=== PATIENT | male | born 1940 | race Caucasian/White ===

== ENCOUNTER 2017-09-13 14:45 | Inpatient (IN) | payer MEDICARE ==
[2017-09-13] MEDS ORDERED: ONDANSETRON INJ 4 MG/2 ML VIAL IV ONE (15:29)
[2017-09-13] MEDS ORDERED: SODIUM CHLORIDE 0.9% (FLUSH) 10 ML SYG IV PRN (15:29)
[2017-09-13] MEDS ORDERED: SODIUM CHLORIDE 0.9% 1000ML 1,000 ML IVS PRN (15:29)
--- NOTE | 2017-09-13 15:55 | ED.PDOC ---
History of Present Illness - General Chief Complaint: Diabetic Complaint Stated Complaint: HYPERGLYCEMIA Time Seen by Provider: 09/13/17 15:04 Source: patient, family - History of Present Illness Initial Comments: PT BROUGHT TO THE ED BY HIS SON WHO WAS CALLED BY PCP AND TOLD TO COME TO THE ED DUE TO ABNORMALITIES OF BLOOD WORK DRAWN YESTERDAY AT [facility] OFFICE. PT WAS FOUND TO HAVE ELEVATED BLOOD GLUCOSE AND LOW CO2. PT HAS BEEN PROGRESSIVELY MORE AND MORE WEAK OVER THE PAST WEEK WHEN HE BEGAN HAVING FLU LIKE SYMPTOMS OF COUGH AND VOMITING. PT STATES THAT HE STOPPED TAKING HIS INSULIN FOR A WEEK DUE TO THE WEAKNESS AND VOMITING. SON ALSO STATES THAT PATIENT HAS A LEFT HEEL WOUND AND HAS BEEN INCONTINENT OF URINE. Timing/Duration: 1 week, getting worse Severity: moderate Improving Factors: nothing Worsening Factors: nothing Associated Symptoms: cough, malaise, nausea/vomiting, weakness Allergies/Adverse Reactions: Allergies Penicillins Allergy (Severe, Verified 11/18/15 13:30) Home Medications: Ambulatory Orders Allopurinol [Zyloprim] 300 mg PO DAILY 11/18/15 Glipizide 10 mg PO DAILY 11/18/15 Ibuprofen 800 mg PO Q4HR 11/18/15 Metformin HCl 1,000 mg PO BID 11/18/15 Simvastatin 5 mg PO DAILY 11/18/15 Warfarin Sodium [Coumadin] 4 mg PO DAILY 11/18/15 traMADol 37.5MG/APAP 325MG [Ultracet] 1 ea PO Q6H PRN #12 tab 11/18/15 Review of Systems - Review of Systems Constitutional: States: malaise, weakness. Denies: chills, fever EENTM: States: nose congestion. Denies: throat pain Respiratory: States: cough, short of breath Cardiology: Denies: chest pain, palpitations Gastrointestinal/Abdominal: States: nausea, vomiting. Denies: abdominal pain Genitourinary: States: other - INCONTINENCE. Denies: hematuria Musculoskeletal: Denies: joint pain, joint swelling Skin: States: lesions - TO LEFT HEEL. Denies: rash Neurological: States: weakness. Denies: headache Endocrine: States: no symptoms reported Hematologic/Lymphatic: States: no symptoms reported Past Medical History (General) - Patient Medical History Hx Seizures: No Hx Stroke: No Hx Dementia: No Hx Asthma: Yes Hx of COPD: No Hx Cardiac Disorders: Yes - a fib Hx Congestive Heart Failure: No Hx Pacemaker: No Hx Hypertension: Yes Hx Thyroid Disease: No Hx Diabetes: Yes Hx Gastroesophageal Reflux: No Hx Renal Disease: No Hx Cancer: No Hx of HIV: No Hx Hepatitis C: No Hx MRSA: No - Vaccination History Hx Tetanus, Diphtheria Vaccination: Yes Hx Influenza Vaccination: Yes Hx Pneumococcal Vaccination: Yes - Social History Hx Tobacco Use: No Hx Chewing Tobacco Use: No Hx Alcohol Use: No Hx Substance Use: No Hx Substance Use Treatment: No Hx Depression: No Hx Physical Abuse: No Hx Emotional Abuse: No Hx Suspected Abuse: No - Female History Patient : No Family Medical History - Family History Father Family History: Unknown Physical Exam - Physical Exam General Appearance: Alert, Frail, No apparent distress, Ill Appearing, Well Developed, Well Groomed, Well Hydrated, Well Nourished Ears, Nose, Throat: hearing grossly normal Neck: supple, normal inspection Respiratory: no respiratory distress, no accessory muscle use, crackles - AT BILATERAL BASES Cardiovascular/Chest: no murmur, tachycardia, irregularly irregular Gastrointestinal/Abdominal: non tender, soft Back Exam: normal inspection Extremity: other - LARGE SHALLOW ULCERATION TO LEFT HEEL Neurologic: no motor/sensory deficits, normal mood/affect Skin Exam: warm/dry, pallor Progress - Progress Progress: 09/13/17 17:20 PT RESTING COMFORTABLY ON RE-EVAL. BP IMPROVED AFTER IV FLUID BOLUS. DIAGNOSTICS STUDIES DISCUSSED. PT AGREES WITH PLAN TO ADMIT. - Results/Orders Results/Orders: 09/13/17 15:04 EKG Assessment ONCE 09/13/17 15:15 EKG STAT 09/13/17 15:29 IV Care:Saline Lock per Protoc QSHIFT Sodium Chloride 0.9% (Flush) [Saline Flush Syringe] 10 ml IV PRN PRN Pulse Oximetry Assessment DAILY 09/13/17 15:30 EKG STAT 09/13/17 16:25 Arterial Blood Gas Routine 09/13/17 17:17 URINE CULTURE W/COLONY COUNT Stat 09/13/17 17:27 Sodium Chloride 0.9% 1000ML [Ns 1000 ml] 1,000 ml IVS ONCE 09/13/17 17:40 Catheter:Dunne QSHIFT 09/13/17 18:00 Insulin, Reg.(Human) [HumuLIN R] 250 units Sodium Chl 0.9% 250Ml (Renetta) [NS 250ml (RENETTA)] 247.5 ml IVPB Q12H 09/14/17 09:00 Pulse Ox Daily Laboratory Results - last 24 hr 09/13/17 09/13/17 09/13/17 15:08 15:42 15:42 WBC 16.3 H RBC 3.84 L Hgb 11.3 L Hct 34.8 L MCV 90.6 MCH 29.4 MCHC 32.4 L RDW 13.5 Plt Count 393 MPV 8.1 Absolute Neuts (auto) 13.80 H Absolute Lymphs (auto) 1.10 Absolute Monos (auto) 1.20 H Absolute Eos (auto) 0.00 Absolute Basos (auto) 0.20 H Neutrophils % 84.4 H Lymphocytes % 6.9 L Monocytes % 7.3 Eosinophils % 0.2 L Basophils % 1.2 Sodium 133 L Potassium 3.6 Chloride 100 L Carbon Dioxide 20 L Anion Gap 16.6 BUN 65 H Creatinine 1.30 BUN/Creatinine Ratio 50.0 H POC Glucose 400 H Random Glucose 485 H* Serum Osmolality 305.8 H Calcium 9.0 Total Bilirubin 0.8 AST 19 ALT 9 L Alkaline Phosphatase 89 Serum Total Protein 6.6 Albumin 2.4 L Globulin 4.2 H Albumin/Globulin Ratio 0.6 L Urine Color Urine Appearance Urine pH Ur Specific Dorris Urine Protein Urine Glucose (UA) Urine Ketones Urine Blood Urine Nitrite Urine Bilirubin Urine Urobilinogen Ur Leukocyte Esterase Urine RBC Urine WBC Ur Epithelial Cells Amorphous Sediment Urine Bacteria Serum Ketones Small 09/13/17 17:17 WBC RBC Hgb Hct MCV MCH MCHC RDW Plt Count MPV Absolute Neuts (auto) Absolute Lymphs (auto) Absolute Monos (auto) Absolute Eos (auto) Absolute Basos (auto) Neutrophils % Lymphocytes % Monocytes % Eosinophils % Basophils % Sodium Potassium Chloride Carbon Dioxide Anion Gap BUN Creatinine BUN/Creatinine Ratio POC Glucose Random Glucose Serum Osmolality Calcium Total Bilirubin AST ALT Alkaline Phosphatase Serum Total Protein Albumin Globulin Albumin/Globulin Ratio Urine Color Yellow Urine Appearance Cloudy Urine pH 6.0 Ur Specific Dorris 1.020 Urine Protein 30 Urine Glucose (UA) >=1000 H Urine Ketones 40 H Urine Blood Small H Urine Nitrite Positive H Urine Bilirubin Negative Urine Urobilinogen 2.0 H Ur Leukocyte Esterase Negative Urine RBC 5-10 H Urine WBC 3-5 H Ur Epithelial Cells 0-1 Amorphous Sediment 4+ Urine Bacteria 3+ H Serum Ketones - EKG/XRAY/CT EKG: Atrial, Fibrillation, RVR - @103, NL AXIS, RBBB, no ST T wave changes - NO OLD EKG FOR COMPARISON. XRAY: chest - NO ACUTE DISEASE PER RAD Departure - Departure Clinical Impression: Hyperglycemia, Dehydration, Generalized muscle weakness, Diabetic foot ulcer, Viral syndrome Time of Disposition: 18:00 Disposition: Admit Patient Condition: Fair Departure Forms: ED Discharge - Pt. Copy, Patient Portal Self Enrollment Instructions: DI for Diabetes Type 2 Referrals: ART DIXON [Primary Care Provider] - 1-2 Weeks Home Medications: Ambulatory Orders Allopurinol [Zyloprim] 300 mg PO DAILY 11/18/15 Glipizide 10 mg PO DAILY 11/18/15 Ibuprofen 800 mg PO Q4HR 11/18/15 Metformin HCl 1,000 mg PO BID 11/18/15 Simvastatin 5 mg PO DAILY 11/18/15 Warfarin Sodium [Coumadin] 4 mg PO DAILY 11/18/15 traMADol 37.5MG/APAP 325MG [Ultracet] 1 ea PO Q6H PRN #12 tab 11/18/15 Decision To Admit - Decistion To Admit Decision to Admit Reason: Admit from ER Decision to Admit Date: 09/13/17 - CASE DISCUSSED WITH NOE EDOUARD NP WHO AGREES TO ADMIT PATIENT. Decision to Admit Time: 18:24
[2017-09-13] MEDS ORDERED: SODIUM CHLORIDE 0.9% 1000ML 1,000 ML IVS ONE ×2 (16:14→17:27)
[2017-09-13] MEDS ORDERED: INSULIN, REG.(HUMAN) 250 UNITS in SODIUM CHL 0.9% 250ML (AVIVA) 247.5 ML IVPB SCH ×4 (18:00→23:30)
[2017-09-13] MEDS ORDERED: SODIUM CHL 0.9% 250ML (AVIVA) 250 ML IVPB ONE (19:08)
[2017-09-13] MEDS ORDERED: INSULIN, REG.(HUMAN) 100 U/ML VIAL ONE (19:08)
--- NOTE | 2017-09-13 22:57 | HP ---
SUPERVISING PHYSICIAN: Jarvis Anaya MD CHIEF COMPLAINT: Weakness and altered mental status. HISTORY OF PRESENT ILLNESS: This is a 77-year-old male patient who presented to the Emergency Room yesterday because he was called by his primary care physician in [place], Dr. Razo, to come to the Emergency Room due to some abnormalities in his blood work. He was found to have a very low CO2 and an elevated glucose. Initially, his symptoms started approximately one week ago with extreme weakness and flu like symptoms. He was febrile, but did not take his temperature and had extremely bad chills. He had some nausea and vomiting and it got to the point that his vomiting was so bad that he quit taking all of his medicines including his insulin. He also noted a heel ulcer on his left foot. In addition to the flu like symptoms, he also was incontinent and was falling. There was no acute trauma, but he was very weak. In the Emergency Room, his lab showed a white count 16,300 with hemoglobin 11.3 and hematocrit 34.8. Blood sugar was 485. Sodium 133, potassium 3.6, chloride 100, carbon dioxide 20. BUN 65, creatinine 1.3. Serum osmolality was 305.8. Magnesium 1.9. He was given fluid boluses in the Emergency Room and started on an insulin drip. He also was positive for serum ketones. I was called for admission to the hospital. I saw the patient in the Emergency Room. I ordered a urinalysis and he was positive for urinary tract infection. His urine glucose was greater than 1000, urine ketones 40, urine blood small, nitrates positive, urine RBCs 5 to 10, urine WBCs 3 to 5, urine bacteria 3+. He was tachycardic with O2 saturation 90%. Flu swab by PCR was negative for influenza A and B. He was admitted to the Medical/Surgical Floor in the hospital. PAST MEDICAL HISTORY: Past medical history was somewhat difficult to obtain from the patient as he was having a difficult time with remembering his history due to dehydration and elevated glucose. 1. Diabetes mellitus, type 2, on insulin therapy. 2. Atrial fibrillation. 3. Coronary artery disease. 4. Hypertension. 5. Hyperlipidemia. 6. Gastroesophageal reflux disease. 7. Diabetic neuropathy. 8. Gout. 9. Chronic back pain. PAST SURGICAL HISTORY: 1. Back surgery. OUTPATIENT MEDICATIONS: Pending verification and we will have to get those from his primary care physician in [place]. ALLERGIES: PENICILLIN. SOCIAL HISTORY: He lives in [place]. His primary care physician is Dr. Razo in [place]. He lives alone. He denies any tobacco, ETOH or illicit drug use. REVIEW OF SYSTEMS: GENERAL: Positive for fatigue and fever. Negative for weight changes. HEENT: Positive for sinus symptoms. Negative for ear pain, vision disturbance or sore throat. RESPIRATORY: Positive for dry cough and some mild shortness of breath. Negative to wheezing. CARDIAC: Negative for chest pain, palpitations or tachycardia. GASTROINTESTINAL: Positive for nausea, vomiting. Negative for diarrhea, constipation or abdominal pain. GENITOURINARY: Negative for hematuria, dysuria or polyuria. SKIN: Negative for lesions or rashes. NEUROLOGIC: Positive for weakness. Negative for headache or seizures. PHYSICAL EXAMINATION: VITAL SIGNS: Temperature 97.9. Heart rate 102. Blood pressure 100/61. Respiratory rate 20. O2 saturation 93% on 2 liters nasal cannula. GENERAL: This is a 77-year-old male patient who is lying in his hospital bed. He is in no acute distress. HEENT: Normocephalic, atraumatic. Pupils are equal and reactive. Oropharynx is clear. Oral mucous membranes are dry. NECK: Supple without mass. No discernible jugular venous distention. RESPIRATORY: Essentially clear to auscultation bilaterally. CHEST: There is equal rise and fall of the chest with inspiration and expiration. CARDIOVASCULAR: Regular rate and rhythm. At times, he is slightly tachycardic. ABDOMEN: Soft, nondistended, nontender. Bowel sounds are positive. EXTREMITIES: No cyanosis, clubbing or edema. He does have a dressing to his left heel that is dry and intact. NEUROLOGIC: Awake, alert and oriented times three although he has a difficult time with his short term memory, most likely due to his illness. LABORATORY: In addition to those in the history of present illness, sodium 133 , potassium 3.4, chloride 102, carbon dioxide 20, BUN 66, creatinine 1.26. Glucose 420, serum osmolality 303.6. PT 165.3, INR 15.0, PT-T 66.3. Chest x- ray per radiologic interpretation shows no focal airspace disease, prominence of the left hilum may be seen with lymphadenopathy and prominent pulmonary vasculature or mass. All other labs and films have been reviewed via the EMR. ASSESSMENT: 1. Diabetic ketoacidosis with positive serum ketones and an elevated blood sugar in a known diabetic who has stopped taking his medications approximately one week ago and was exacerbated by his infectious process. 2. Urinary tract infection. 3. Dehydration. 4. Altered mental status. 5. Febrile illness, most likely related to #2. 6. Diabetic left heel abscess. 7. Gastroesophageal reflux disease. 8. Diabetic neuropathy. 9. Gout. 10. Hypertension. 11. History of atrial fibrillation, presently on warfarin therapy with a supratherapeutic INR. 12. Diabetes mellitus, type 2. 13. Coronary artery disease. 14. Hyperlipidemia. PLAN: We will admit the patient to the hospital. We will continue on his insulin drip until serum ketones are negative. We will continue administration of IV fluids, but I will be somewhat careful with that due to his cardiac history. It would be very helpful if we had some records from his primary care physician, Dr. Razo, in [place] as well as clarification on all his home medications. I will make him NPO for now until we get his blood sugars straightened out. He has also been put on Rocephin for the urinary tract infection and I have ordered a wound culture as well as a urine culture. Blood cultures were done in the Emergency Room. I am not sure if we need to followup on the chest x-ray with CT of the chest, but will do that as the patient's condition improves. His INR was supratherapeutic. I have given 2 mg of vitamin K and we will recheck his INR in the morning. I am not sure if he was taking his Coumadin because of his confusion and I am not quite sure why his INR was so high, but we will followup on that also. I have ordered a hemoglobin A1c. Also, diabetic ketoacidosis protocol was initiated on admission. We will continue to monitor the patient closely and follow as needed. #[id number] [facility]
--- NOTE | 2017-09-13 23:00 | RAD ---
Examination: XR CHEST 1 VIEW dated 09/13/2017 8:57 PM SPEECH THERAPY DIRECTOR History: leukocytosis Comparison: Chest radiograph same day Technique: Frontal view of the chest Findings: Exam is hypoventilatory however there is no focal airspace consolidation. Mild linear atelectasis of the right lung base. No pneumothorax or pleural effusion. Prominence of the left hilum. Stable cardiac silhouette. Impression: No focal airspace disease. Prominence of the left hilum may be seen with lymphadenopathy, prominent pulmonary vasculature, or mass. Electronically signed by: Jarvis Mary MD 09/13/2017 10:59 PM SPEECH THERAPY DIRECTOR
[2017-09-13] MEDS ORDERED: ONDANSETRON INJ 4 MG/2 ML VIAL IV PRN (23:15)
[2017-09-13] MEDS ORDERED: KCL 20 MEQ/NS 1,000 ML IVS PRN (23:15)
[2017-09-13] MEDS ORDERED: PANTOPRAZOLE SODIUM IV 40 MG VIAL IV SCH (23:30)
[2017-09-13] MEDS ORDERED: ENOXAPARIN SODIUM 40 MG/0.4 ML SYG SUBCU SCH (23:30)
--- NOTE | 2017-09-13 23:30 | PCM.CORE ---
Physician DVT/VTE - Prophylaxis Currently: Patient already on anticoagulation therapy - 5 or more Very High Risk Treatments: Early Ambulation *, Sequential Compression Device
[2017-09-13] MEDS ORDERED: KCL 20MEQ/D5NS 1,000 ML IVS PRN (23:42)
[2017-09-13] MEDS ORDERED: SODIUM CHL 0.9% 50ML MIN-BAG+ 50 ML IVPB ONE (23:58)
[2017-09-13] MEDS ORDERED: cefTRIAXone SODIUM 1 GM VIAL ONE (23:58)
[2017-09-14] MEDS: IV SET AND CAP CHANGE INJ INJ SCH (00:06)
[2017-09-14] MEDS ORDERED: KCL 20MEQ/D5NS 1,000 ML IVS ONE (00:18)
[2017-09-14] MEDS ORDERED: KCL 20 MEQ/NS 1,000 ML IVS ONE (04:00)
[2017-09-14] MEDS ORDERED: PHYTONADIONE INJ 10 MG/ML AMP IV ONE (04:04)
[2017-09-14] MEDS ORDERED: DEXTROSE 50% 25 GM/50 ML SYG IV PRN (04:55)
[2017-09-14] MEDS ORDERED: GLUCAGON INJ 1 MG VIAL SUBCU PRN (04:55)
[2017-09-14] MEDS: INSULIN LISPRO 100 UNITS/ML PEN SUBCU SCH ×4 (06:12→16:13)
[2017-09-14] MEDS ORDERED: INSULIN LISPRO 100 UNITS/ML PEN SUBCU SCH (07:30)
[2017-09-14] MEDS ORDERED: cefTRIAXone SODIUM 1 GM VIAL ONE ×2 (08:42→11:09)
[2017-09-14] MEDS ORDERED: SODIUM CHL 0.9% 50ML MIN-BAG+ 0 ML IVPB ONE (08:42)
[2017-09-14] MEDS: KCL 20 MEQ/NS 1,000 ML IVS PRN ×2 (09:16→19:20)
[2017-09-14] MEDS ORDERED: INSULIN DETEMIR 100 UNITS/ML PEN SUBCU ONE (10:44)
[2017-09-14] MEDS ORDERED: SODIUM CHLORIDE 0.9% 1000ML 1,000 ML IVS ONE (10:50)
[2017-09-14] MEDS ORDERED: SODIUM CHL 0.9% 50ML MIN-BAG+ 50 ML IVPB ONE (11:08)
[2017-09-14] MEDS: cefTRIAXone SODIUM 1 GM in SODIUM CHL 0.9% 50ML MIN-BAG+ 50 ML IVPB SCH ×3 (11:33)
[2017-09-14] MEDS ORDERED: levoFLOXacin 500MG IV 500 MG in PREMIX BAG 1 BAG IVPB SCH ×2 (12:00→14:00)
[2017-09-14] MEDS ORDERED: VANCOMYCIN HCL INJ 1,000 MG in SODIUM CHLORIDE 0.9% 250ML 250 ML IVPB SCH (12:00)
[2017-09-14] MEDS ORDERED: VANCOMYCIN PER PHARMACY INJ SCH (12:00)
[2017-09-14] MEDS ORDERED: SODIUM CHLORIDE 0.9% 250ML 250 ML ONE ×2 (12:58→21:00)
[2017-09-14] MEDS ORDERED: levoFLOXacin 500MG IV 100 ML IVPB ONE (12:58)
[2017-09-14] MEDS ORDERED: VANCOMYCIN HCL INJ 1,000 MG VIAL IVPB ONE ×2 (12:59→21:00)
[2017-09-14] MEDS ORDERED: PANTOPRAZOLE SODIUM TAB 40 MG PO ONE (12:59)
[2017-09-14] MEDS ORDERED: SODIUM CHL 0.9% 250ML (AVIVA) 250 ML IVPB ONE (14:52)
[2017-09-14] MEDS ORDERED: INSULIN, REG.(HUMAN) 100 U/ML VIAL ONE (14:53)
[2017-09-14] MEDS: INSULIN, REG.(HUMAN) 250 UNITS in SODIUM CHL 0.9% 250ML (AVIVA) 247.5 ML IVPB SCH ×2 (15:02)
[2017-09-14] MEDS: PANTOPRAZOLE SODIUM TAB 40 MG PO SCH (16:28)
--- NOTE | 2017-09-14 16:47 | RAD ---
EXAM DESCRIPTION: Foot,Left 2 Views CLINICAL HISTORY: left heel decubitus ulcer; leukocytosis COMPARISON: None. TECHNIQUE: 2 views right FINDINGS: Digital artery calcification is observed throughout the foot. Mild degenerative changes are observed in the metatarsal phalangeal joint. A large plantar calcaneal spurs observed. Intertarsal degenerative arthritis is observed. Degenerative changes are observed in the tibial talar articulation. No bone erosion or destruction is seen to suggest osteomyelitis. IMPRESSION: Degenerative changes are observed. No plain film evidence of osteomyelitis is detected. Electronically signed by: Ta Lora MD 09/14/2017 4:45 PM [facility]
--- NOTE | 2017-09-14 19:01 | PN ---
DATE: 09/14/17 SUPERVISING PHYSICIAN: Jarvis Anaya M.D. SUBJECTIVE: The patient is resting in bed. He was changed to a p.o. diet this morning and has been to tolerate oral intake. He remains quite dehydrated and notes that his thinking process is still fuzzy. He has been afebrile since admission. He denied any chest pains. No nausea, vomiting or diarrhea. OBJECTIVE: VITAL SIGNS: T max 98.7, pulse 98, blood pressure 122/78, respirations 18, satting 96% on nasal cannula at rest on 2 liters. I's and O's show a positive balance of 1580 with 2580 in, 1,000 out. Weight is 106.5 kg. CHEST: Lungs are clear to auscultation, just diminished towards the bases. HEART: Slightly irregular rate and rhythm with a tachycardic rhythm noted on the monitor. ABDOMEN: Soft, non-tender. Positive bowel sounds. EXTREMITIES: No clubbing, cyanosis or edema. Left heel has a dressing in place that is clean and dry with noted pressure ulcer overlying the heel that is approximately 6 cm in circumference with an area of cellulitis circumferential with no obvious drainage. The center is notable for eschar. NEUROLOGIC: He is alert and oriented times three. LABORATORY: White count continues to show leukocytosis with 15,800 white count with hemoglobin 10.6, hematocrit 32.8, platelet count 387,000. Differential does show a left shift. Coagulation studies today show PT 25.1 with INR 2.24. Chemistries: Last BMP this morning after he was stopped on insulin drip showed sodium 135, potassium 4.1, glucose 262, serum osmolality 299, BUN 70, creatinine 1.24. Liver functions showed to be within normal limits. Blood sugars still remain in the high 200s. He did have a negative ketone at 2:00 this morning, however at 6:00 after insulin was stopped it was showing small again. MICROBIOLOGY: He had 1 set of blood cultures both aerobic and anaerobic positive that showed gram positive cocci. Wound culture is pending. The other set of blood culture shows positive anaerobic bottle again with gram positive cocci. Urine culture preliminary shows gram positive cocci. RADIOLOGY: X-ray of the left heel per radiology interpretation shows degenerative changes observed. No plain film evidence of osteomyelitis was detected per radiology interpretation. ASSESSMENT: 1. Mild diabetic ketoacidosis showing some improvement after initiation of DKA protocol with the patient being transitioned from insulin drip initially to subcue insulin secondary to poor medical compliance in regards to his insulin therapy and exacerbated by underlying infectious process to include both diabetic ulcer, cystitis and bacteremia. 2. Bacteremia with gram positive cocci preliminary on gram stain, likely etiology is from a diabetic ulcer on the left heel. 3. Diabetic ulcer of left heel stage 2 decubitus with cultures pending felt to be the etiology of underlying bacteremia and urinary tract infection. 4. Acute cystitis with preliminary culture showing gram positive cocci likely secondary to the underlying bacteremia. 5. Dehydration secondary to diabetic ketoacidosis. 6. Altered mental status secondary to underlying infectious process with metabolic encephalopathy and exacerbated by dehydration. 7. Febrile illness with leukocytosis secondary to bacteremia. 8. Prerenal azotemia secondary to dehydration due to underlying diabetic ketoacidosis. 9. Gastroesophageal reflux disease. 10. Diabetic neuropathies. 11. Gout. 12. Hypertension. 13. History of atrial fibrillation on chronic Coumadin therapy showing a supratherapeutic INR on admission requiring administration of Vitamin K now showing a therapeutic INR. 14. Diabetes mellitus type 2 poorly controlled. 15. Coronary artery disease. 16. Hyperlipidemia. PLAN: Given that the patient now has positive blood cultures and it is felt that the source of the bacteremia and urinary tract infection is the diabetic ulcer and with gram stains and preliminary cultures showing gram positive cocci , will go ahead and initiate vancomycin per Pharmacy protocol as well as start him on some Levaquin and await final culture results to further target antibiotic therapy. Will reinitiate his insulin drip to further control his blood sugars and continue with IV fluids in efforts to reverse his dehydration and improve his hemodynamics. He is on a diabetic diet but has had very little oral intake and as well has been started on subcue insulin. Anticipate that the insulin drip can be kept at a low basal rate with the goal of keeping his blood sugars between 150 and 200. Will continue to monitor his blood sugars hourly and as he shows to be stable, extend those to every 2 hours and every 4 hours along with BMPs at least for an additional 12 to 24 hours. Will anticipate culture results within the next 24 to 48 hours to further target antibiotic therapy and given the source of infection and bacteremia, anticipate at least 14 day course of treatment and more likely longer depending on again the ultimate culture results. Once those culture results are available, will consult with Infectious Disease, Dr. Hu, to assist in further management of his antibiotic therapy. Again as he shows stabilization of his blood sugars, will titrate off insulin drip and continue with subcue within the next 24 hours. Until further culture results are available and the patient is showing to be more clinically stable, will anticipate at least an additional 24 to 48 hours on Acute Care. Until discharge, with anticipation of discharging on antibiotics or needing to go to Swing Bed, will get a Physical Therapy consultation as well prior to discharge. Until discharge, will continue to monitor the patient closely and treat appropriately. #[id number] [facility]
--- NOTE | 2017-09-14 20:03 | CT ---
Procedure: CT HEAD WITHOUT IV CONTRAST Exam Date: 09/14/2017 7:07 PM OUTBOARD SYSTEM OPERATOR Ordering Provider: Adelfo Flower NP Clinical Indication: elevated INR s/p fall Comparison: None Technique: CT images of the head were obtained without contrast administration. Coronal and sagittal reformats were obtained. This exam was performed according to our departmental dose-optimization program which includes automated exposure control, adjustment of the mA and/or kV according to patient size and/or use of iterative reconstruction technique. Findings: There is no acute cortical infarction, hemorrhage, midline shift, mass effect, or hydrocephalus. The calvaria and skull base are unremarkable. Paranasal sinuses and mastoid air cells are well aerated. Impression: Examination is degraded by motion. No gross intracranial hemorrhage or midline shift. Electronically signed by: Yin Cheatham MD 09/14/2017 8:02 PM OUTBOARD SYSTEM OPERATOR
--- NOTE | 2017-09-14 20:14 | RAD ---
Procedure: XR WRIST 1-2 VIEWS Exam Date: 09/14/2017 7:13 PM [facility] Ordering Provider: Adelfo Flower NP Clinical Indication: right wrist pain s/p fall Comparison: None Findings: There is no definite evidence for acute fracture or focal osseous destruction. There is evidence of severe widening of the scapholunate interval measuring approximately 13 mm. There is significantly diminutive and sclerotic appearance of the proximal pole of the scaphoid bone. There is proximal migration of the capitate bone and demonstrates pseudoarticulation with the distal radial metaphysis. Severe triscaphe and mild thumb CMC joint space narrowing and spurring is present. IMPRESSION: No acute osseous abnormality. 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 Electronically signed by: Yin Cheatham MD 09/14/2017 8:12 PM [facility]
[2017-09-14] MEDS ORDERED: metroNIDAZOLE IV PREMIX 500MG 100 ML IVPB ONE (21:00)
[2017-09-14] MEDS: metroNIDAZOLE IV PREMIX 500MG 500 MG in PREMIX BAG 1 BAG IVPB SCH (21:05)
[2017-09-14] MEDS: GABAPENTIN 300 MG CAP PO SCH (21:12)
[2017-09-14] MEDS ORDERED: CHLORHEXIDINE GLUCONATE 4 % 15 ML UD TOP ONE (21:55)
[2017-09-14] MEDS: CHLORHEXIDINE GLUC 4% 15ML 45 ML, WATER FOR IRRIGATION 1,000 ML TOP SCH ×2 (21:56)
[2017-09-14] MEDS: ACETAMINOPHEN 325 MG TAB PO PRN (22:17)
[2017-09-14] MEDS ORDERED: levoFLOXacin 250MG IV 250 MG in PREMIX BAG 1 BAG IVPB ONE (22:21)
[2017-09-14] MEDS ORDERED: levoFLOXacin 250MG IV 50 ML IVPB ONE (22:29)
[2017-09-14] MEDS ORDERED: VANCOMYCIN HCL INJ 500 MG VIAL ONE (23:06)
[2017-09-14] MEDS: VANCOMYCIN HCL INJ 1,000 MG, VANCOMYCIN HCL INJ 250 MG in SODIUM CHLORIDE 0.9% 250ML 25... IVPB SCH (23:06)
[2017-09-15] MEDS: KCL 20MEQ/D5 1/2NS 1,000 ML IVS PRN ×2 (01:30→12:30)
[2017-09-15] MEDS ORDERED: SODIUM CHL 0.9% 250ML (AVIVA) 250 ML IVPB ONE ×2 (03:16→17:17)
[2017-09-15] MEDS ORDERED: INSULIN, REG.(HUMAN) 100 U/ML VIAL ONE ×2 (03:16→17:17)
[2017-09-15] MEDS: INSULIN, REG.(HUMAN) 250 UNITS in SODIUM CHL 0.9% 250ML (AVIVA) 247.5 ML IVPB SCH ×4 (03:20→17:00)
[2017-09-15] MEDS ORDERED: metroNIDAZOLE IV PREMIX 500MG 100 ML IVPB ONE ×3 (04:09→21:41)
[2017-09-15] MEDS: ACETAMINOPHEN 325 MG TAB PO PRN ×2 (04:10→12:47)
[2017-09-15] MEDS: metroNIDAZOLE IV PREMIX 500MG 500 MG in PREMIX BAG 1 BAG IVPB SCH ×3 (04:44→21:43)
[2017-09-15] MEDS: PANTOPRAZOLE SODIUM TAB 40 MG PO SCH (06:43)
[2017-09-15] MEDS ORDERED: MAGNESIUM SULFATE PREMIX 2GM 2 GM in PREMIX BAG 1 BAG IVPB ONE (08:34)
[2017-09-15] MEDS ORDERED: MAGNESIUM SULFATE PREMIX 2GM 50 ML IVPB ONE (08:42)
[2017-09-15] MEDS: ALLOPURINOL 300 MG TAB PO SCH (08:43)
[2017-09-15] MEDS: CHLORHEXIDINE GLUC 4% 15ML 45 ML, WATER FOR IRRIGATION 1,000 ML TOP SCH ×2 (08:46)
[2017-09-15] MEDS ORDERED: SODIUM CHLORIDE 0.9% 1000ML 1,000 ML ONE (08:53)
--- NOTE | 2017-09-15 10:11 | CT ---
Procedure: CT CHEST WITH IV CONTRAST Exam Date: 09/15/2017 8:35 AM DISTRICT LEADER Ordering Provider: Adelfo Flower NP Clinical Indication: F/u on chest xray findings on admit 09/13/2017 Comparison: Chest x-ray September 13, 2017 Technique: Helically acquired axial images were obtained through the chest. Low osmolar IV contrast was given. Coronal and Sagittal reformats were obtained. This exam was performed according to our departmental dose-optimization program which includes automated exposure control, adjustment of the mA and/or kV according to patient size and/or use of iterative reconstruction technique. Findings: Examination is somewhat degraded by extensive respiratory motion. The previously seen prominence in the left hilar region might have been artifactual from superimposition of vascular structures. No large lobar consolidation, pleural effusion, or pneumothorax is evident. There is bilateral lower lobe atelectasis. No pathologic adenopathy by size criteria. The heart size is enlarged. There is asymmetrically enlarged and heterogeneous appearance of the right thyroid lobe. This could be further assessed with nonemergent thyroid ultrasound. Partially imaged upper abdomen demonstrates no acute abnormality. Visualized osseous structures demonstrate no aggressive or destructive features. Multilevel degenerative changes are present. Impression: Severely motion degraded examination. Previously seen abnormality in the left hilar region most likely represented superimposition of vessels. No large lobar consolidation. Cardiomegaly. Electronically signed by: Yin Cheatham MD 09/15/2017 10:11 AM DISTRICT LEADER
[2017-09-15] MEDS ORDERED: SODIUM CHLORIDE 0.9% 250ML 250 ML ONE ×2 (10:41→22:10)
[2017-09-15] MEDS ORDERED: VANCOMYCIN HCL INJ 1,000 MG VIAL IVPB ONE ×2 (10:41→22:10)
[2017-09-15] MEDS ORDERED: VANCOMYCIN HCL INJ 500 MG VIAL ONE ×2 (10:41→22:10)
[2017-09-15] MEDS: VANCOMYCIN HCL INJ 1,000 MG, VANCOMYCIN HCL INJ 250 MG in SODIUM CHLORIDE 0.9% 250ML 25... IVPB SCH ×2 (11:01→22:49)
[2017-09-15] MEDS ORDERED: WARFARIN SODIUM 2 MG TAB ONE (12:47)
[2017-09-15] MEDS ORDERED: WARFARIN SODIUM 2 MG TAB PO SCH (14:00)
[2017-09-15] MEDS ORDERED: levoFLOXacin 750MG IV 750 MG in PREMIX BAG 1 BAG IVPB SCH (14:00)
[2017-09-15] MEDS ORDERED: IBUPROFEN 400 MG TAB PO ONE (18:28)
--- NOTE | 2017-09-15 18:52 | PN ---
DATE: 09/15/17 SUPERVISING PHYSICIAN: Jarvis Anaya M.D. SUBJECTIVE: The patient is showing some slight clinical improvement today. He is much more alert this morning and is less confused. He has been spiking fevers up to 102. He has had no nausea or vomiting and continues to tolerate insulin drip. OBJECTIVE: VITAL SIGNS: T max 102.7, pulse 125, blood pressure 119/69, respirations 20, satting 95% on nasal cannula at 4 liters. CHEST: Lung sounds remain diminished towards the bases but no rhonchi, rales or wheezing. HEART: Slightly irregular rate and tachycardic rhythm noted on the monitor with a rare PVC. ABDOMEN: Soft, non-tender. Positive bowel sounds. EXTREMITIES: He is showing 1+ edema from just below his patella bilaterally to his lower extremities. The ulceration on the heel continues to show a large area of eschar. It is soft to palpation. No obvious drainage. He remains with some mild erythema and cellulitis on the borders. His right wrist and hand remain mildly erythematous and tender to touch more so on the radial dorsal side. Pulses are strong. Capillary refill is brisk. There are no obvious signs of cellulitis. NEUROLOGIC: He is alert and oriented times three. LABORATORY: White count today shows continued elevation of 19,000 with hemoglobin 10.1, hematocrit 30.8, platelet count 362,000. Differential shows a left shift. His INR this morning was 1.99 with PTT of 22.3. Chemistries show a mild hypokalemia with potassium 3.5, chloride is slightly elevated at 112, carbon dioxide now is normalized at 22, anion gap was 7.5, BUN 38, creatinine 0.65. Blood sugars are running between 159 and 208. Lactic acid this morning is 0.9, calcium is low at 8.1, magnesium low at 1.6. Total bilirubin is still slightly elevated at 1.1 as well as AST of 64. MICROBIOLOGY: He had a new set of blood cultures drawn last night with a spike in his temperature and currently is showing to be negative. Wound culture preliminary shows gram negative rods and gram positive cocci. He has 2 aerobics and 2 anaerobic bottles that are showing positive growth with gram positive cocci, awaiting final culture results. Urine culture final results show Staphylococcus aureus that is not a Methicillin resistant Staphylococcus aureus, sensitive to all but benzylpenicillins. RADIOLOGY: He had a wrist x-ray completed last night of the right wrist due to wrist pain and per radiology interpretation showed no acute osseous abnormalities, but evidence of an advanced SLAC wrist with severe triscaphe and mild thumb CMC degenerative joint disease. He had a chest CT with contrast to followup on previous findings on x-rays and per radiology interpretation noted previously seen abnormality in the left hilar region most likely represented superimposition of vessels. There was no large lobular consolidation. There was mention of cardiomegaly. ASSESSMENT: 1. Mild diabetic ketoacidosis improving with IV fluids and continued DKA protocol with insulin drip with some exacerbation secondary to underlying infectious process to include both a diabetic ulcer, cystitis and bacteremia. 2. Bacteremia with gram positive cocci. Preliminary gram stain and preliminary culture results are pending. Etiology is felt to be from diabetic ulcer on the left heel. 3. Diabetic ulcer on the left heel, stage 2 decubitus with culture showing preliminary gram-negative rods and gram positive cocci likely underlying source for the bacteremia and urinary tract infection. 4. Acute cystitis with final culture results showing a non-Methicillin resistant Staphylococcus aureus likely secondary source of infection with primary source being the underlying ulceration of his left heel. 5. Dehydration secondary to diabetic ketoacidosis showing improvement on IV fluids and insulin drip. 6. Altered mental status secondary to metabolic encephalopathy with underlying infectious process and the bacteremia showing some slight improvement with initiation of aggressive parenteral antibiotic therapy to include vancomycin, Levaquin and Flagyl. 7. Febrile illness with continued leukocytosis secondary to bacteremia. 8. Prerenal azotemia secondary to dehydration improving with fluids. 9. Severe left wrist pain with evidence of advanced SLAC wrist deformity. 10. Gastroesophageal reflux disease. 11. Diabetic neuropathies. 12. Gout. 13. Hypertension. 14. History of atrial fibrillation on chronic Coumadin therapy showing initially a supratherapeutic INR on admission improving after administration of Vitamin K now with a normalized INR requiring initiation of anticoagulation therapy with Coumadin and close monitoring. 15. Diabetes mellitus type 2 poorly controlled secondary to underlying diabetic ketoacidosis requiring initiation of insulin drip. 16. Coronary artery disease. 17. Hyperlipidemia. PLAN: Will continue current plan of care with antibiotic coverage to include for gram negative and gram positive with vancomycin, Flagyl and Levaquin. Once final culture results are back, can further target antibiotic therapy and deescalate his antibiotics as his clinical picture improves. Will continue with his IV insulin drip for probably another 12 to 24 hours. As he shows clinical improvement, certainly will change to a.c and h.s. and as he is able to tolerate an oral diet. I decreased his IV fluids to 80 an hour with D5 half normal saline and 20 of potassium. On management of his wound, we will utilize basic wound care with wet-to-dry dressing after the area has been cleansed with dilute Hibiclens. Will consult with Dr. Perez on Sunday once he is available in efforts to see if the ulcer on the left foot can be debrided to assist in the healing process. Will continue to monitor the patient closely and as he stabilizes again deescalate antibiotic coverage and his insulin protocol. Until then, will continue to monitor and treat appropriately. [facility][id number] [facility]
[2017-09-15] MEDS: GABAPENTIN 300 MG CAP PO SCH (21:15)
[2017-09-16] MEDS: KCL 20MEQ/D5 1/2NS 1,000 ML IVS PRN ×2 (01:32→14:11)
[2017-09-16] MEDS ORDERED: INSULIN, REG.(HUMAN) 100 U/ML VIAL ONE ×2 (02:36→18:36)
[2017-09-16] MEDS ORDERED: SODIUM CHL 0.9% 250ML (AVIVA) 250 ML IVPB ONE ×2 (02:36→18:36)
[2017-09-16] MEDS: INSULIN, REG.(HUMAN) 250 UNITS in SODIUM CHL 0.9% 250ML (AVIVA) 247.5 ML IVPB SCH ×4 (02:46→18:40)
[2017-09-16] MEDS ORDERED: metroNIDAZOLE IV PREMIX 500MG 100 ML IVPB ONE (04:56)
[2017-09-16] MEDS: metroNIDAZOLE IV PREMIX 500MG 500 MG in PREMIX BAG 1 BAG IVPB SCH (04:59)
[2017-09-16] MEDS: PANTOPRAZOLE SODIUM TAB 40 MG PO SCH (05:41)
[2017-09-16] MEDS ORDERED: MAGNESIUM SULFATE PREMIX 2GM 2 GM in PREMIX BAG 1 BAG IVPB ONE ×3 (05:58→14:00)
[2017-09-16] MEDS ORDERED: MAGNESIUM SULFATE PREMIX 2GM 50 ML IVPB ONE ×2 (06:17→12:15)
[2017-09-16] MEDS: POTASSIUM CHLORIDE 20 MEQ TAB PO SCH (07:47)
[2017-09-16] MEDS: ALLOPURINOL 300 MG TAB PO SCH (07:47)
[2017-09-16] MEDS: CHLORHEXIDINE GLUC 4% 15ML 45 ML, WATER FOR IRRIGATION 1,000 ML TOP SCH ×2 (10:33)
[2017-09-16] MEDS ORDERED: SODIUM CHLORIDE 0.9% 250ML 250 ML ONE (10:46)
[2017-09-16] MEDS ORDERED: VANCOMYCIN HCL INJ 500 MG VIAL ONE (10:46)
[2017-09-16] MEDS ORDERED: VANCOMYCIN HCL INJ 1,000 MG VIAL IVPB ONE (10:46)
[2017-09-16] MEDS ORDERED: VANCOMYCIN HCL INJ 1,000 MG, VANCOMYCIN HCL INJ 500 MG in SODIUM CHLORIDE 0.9% 250ML 25... IVPB SCH (11:00)
[2017-09-16] MEDS ORDERED: POTASSIUM CHLORIDE 20 MEQ TAB PO ONE (11:32)
[2017-09-16] MEDS ORDERED: SODIUM CHL 0.9% 100ML MINI-BAG 100 ML IVPB ONE ×2 (12:13→23:56)
[2017-09-16] MEDS: cefTRIAXone SODIUM 2 GM in SODIUM CHL 0.9% 100ML MINI-BAG 100 ML IVPB SCH (12:16)
--- NOTE | 2017-09-16 14:45 | PN ---
DATE: 09/16/17 SUPERVISING PHYSICIAN: Jarvis Anaya M.D. SUBJECTIVE: The patient is lying in bed. Other than weakness, he has no complaints of shortness of breath, chest pain, nausea or vomiting, diarrhea or constipation. He does complain that his right wrist continues to hurt and it gets cold. He continues to feel weak but he feels better than he has since admission. OBJECTIVE: VITAL SIGNS: T max 24 hours is 100.8, heart rate 106, blood pressure 136/76, respiratory rate 22, O2 sat is 95% on 4 liters nasal cannula. RESPIRATORY: Essentially clear but somewhat diminished throughout. CARDIAC: Regular rate and rhythm. ABDOMEN: Soft, nondistended, non-tender. Bowel sounds are positive. EXTREMITIES: His right hand is somewhat edematous and cool to touch. Capillary refill is about 2 to 3 seconds. His radial pulse is palpable at +2. His wrist is diffusely tender to palpation. He has a dressing to the left heel that is dry and intact. Bilateral pedal pulses are palpable. There is a trace of pedal edema bilaterally. NEUROLOGIC: He is awake, alert and oriented times three. LABORATORY: WBCs are up to 19,500 with a stable hemoglobin and hematocrit at 10 and 30.4, neutrophils 88.1%. PT 40.8 with an INR 3.66. Sodium 135, potassium 3.2, chloride 108, carbon dioxide 21, BUN 22, creatinine 0.51. Glucose has run between 185 and 232. Calcium 7.7 with magnesium 1.5. Final wound culture is positive for Staphylococcus aureus that is not MRSA. It is also positive for Stenotrophomonas Maltophilia. It is sensitive to Levaquin and vancomycin which he is presently on. His aerobic and anaerobic blood cultures are both positive for Staphylococcus aureus. It is not MRSA. It is again sensitive to Levaquin and vancomycin. His final urine culture is positive for Staphylococcus aureus that is not MRSA. All other labs and films have been reviewed via the EMR. ASSESSMENT: 1. Mild diabetic ketoacidosis improving with IV fluids. We are continuing DKA protocol with insulin drip that is most likely exacerbated secondary to underlying infectious process with the diabetic ulcer, cystitis and bacteremia. 2. Bacteremia with gram positive cocci showing Staphylococcus aureus and is most likely from his diabetic ulcer of his left heel. 3. Diabetic ulcer on the left heel, stage 2 decubitus with culture showing Staphylococcus aureus as well as Stenotrophomonas Maltophilia. 4. Acute cystitis showing non-Methicillin resistant Staphylococcus aureus most likely a secondary source of infection with primary source being the underlying ulceration of his left heel. 5. Dehydration secondary to DKA showing improvement on fluids and insulin drip. 6. Altered mental status secondary to metabolic encephalopathy with underlying infectious process and the bacteremia showing some slight improvement with initiation of aggressive parenteral antibiotic therapy to include vancomycin, Levaquin and Flagyl. 7. Febrile illness with continued leukocytosis secondary to bacteremia. 8. Prerenal azotemia secondary to dehydration improving with fluids. 9. Severe left wrist pain with evidence of advanced SLAC wrist deformity. 10. Gastroesophageal reflux disease. 11. Diabetic neuropathies. 12. Gout. 13. Hypertension. 14. History of atrial fibrillation on chronic Coumadin therapy. Initial INR was supratherapeutic. It has been held and after normalizing was placed on his routine dosing of Coumadin. Again, it is supratherapeutic and we will hold it overnight and restart it at a lower dose once his INR becomes therapeutic. 15. Diabetes mellitus type 2 poorly controlled secondary to underlying diabetic ketoacidosis requiring initiation of insulin drip. 16. Coronary artery disease. 17. Hyperlipidemia. PLAN: We will continue with present plan of care. I have repeated his labs in the morning. He has gotten an additional dose of potassium as well as IV magnesium. I will do an arterial ultrasound of his left lower leg and I have also consulted Dr. Perez for wound assessment and debridement tomorrow morning. I spoke with Dr. Hu, Infectious Diseases physician in [place], and based on his culture and sensitivities she recommended that he continue on Levaquin and that the vancomycin and the Flagyl could be discontinued. She also recommended he be on high dose Ceftriaxone at 2 grams b.i.d. We will touch base with her again in the next day or so. He will need close followup with Dr. Hu after discharge. He will also need a thyroid ultrasound as an outpatient based on his CT results. As soon as we can move his IV that right wrist, he will need to have his wrist splinted. He may need followup with Dr. Wing at some point if the wrist continues to give him problems. There may be concerns for some osteomyelitis due to his extensive bacteremia and joint pain. We may need to do further testing to rule that out. At this point, we will continue to monitor him closely and follow as needed. Dr. Anaya is the collaborating physician available for consultation. [facility][id number] [facility]
[2017-09-16] MEDS: levoFLOXacin 750MG IV 750 MG in PREMIX BAG 1 BAG IVPB SCH (16:20)
[2017-09-16] MEDS: ACETAMINOPHEN 325 MG TAB PO PRN (18:31)
[2017-09-16] MEDS: GABAPENTIN 300 MG CAP PO SCH (22:03)
[2017-09-17] MEDS: IV SET AND CAP CHANGE INJ INJ SCH (01:45)
[2017-09-17] MEDS: KCL 20MEQ/D5 1/2NS 1,000 ML IVS PRN (03:23)
[2017-09-17] MEDS: INSULIN, REG.(HUMAN) 250 UNITS in SODIUM CHL 0.9% 250ML (AVIVA) 247.5 ML IVPB SCH ×2 (03:41)
[2017-09-17] MEDS ORDERED: SODIUM CHL 0.9% 250ML (AVIVA) 250 ML IVPB ONE (06:17)
[2017-09-17] MEDS ORDERED: INSULIN, REG.(HUMAN) 100 U/ML VIAL ONE (06:19)
[2017-09-17] MEDS: PANTOPRAZOLE SODIUM TAB 40 MG PO SCH (06:49)
[2017-09-17] MEDS: ALLOPURINOL 300 MG TAB PO SCH (08:29)
[2017-09-17] MEDS: POTASSIUM CHLORIDE 20 MEQ TAB PO SCH (08:29)
[2017-09-17] MEDS: CHLORHEXIDINE GLUC 4% 15ML 45 ML, WATER FOR IRRIGATION 1,000 ML TOP SCH ×2 (08:29)
[2017-09-17] MEDS ORDERED: SODIUM CHL 0.9% 100ML MINI-BAG 100 ML IVPB ONE ×2 (10:21→20:07)
[2017-09-17] MEDS ORDERED: GLUCAGON INJ 1 MG VIAL SUBCU PRN (10:37)
[2017-09-17] MEDS ORDERED: DEXTROSE 50% 25 GM/50 ML SYG IV PRN (10:37)
[2017-09-17] MEDS ORDERED: cefTRIAXone SODIUM 1 GM VIAL ONE (10:58)
[2017-09-17] MEDS: SODIUM CHLORIDE 0.9% (FLUSH) 10 ML SYG IV PRN ×2 (11:24→14:38)
[2017-09-17] MEDS: cefTRIAXone SODIUM 2 GM in SODIUM CHL 0.9% 100ML MINI-BAG 100 ML IVPB SCH ×4 (11:24→23:08)
[2017-09-17] MEDS: SODIUM CHLORIDE 0.9% 1000ML 1,000 ML IVS PRN ×2 (11:35→21:43)
[2017-09-17] MEDS: INSULIN LISPRO 100 UNITS/ML PEN SUBCU SCH ×3 (12:11→21:17)
[2017-09-17] MEDS ORDERED: METOPROLOL TARTRATE INJ 5 MG/5 ML VIAL IV ONE ×2 (12:47→14:33)
--- NOTE | 2017-09-17 15:01 | PN ---
SUPERVISING PHYSICIAN: Andrew Espinoza MD DATE: 09/17/17 SUBJECTIVE: The patient is lying in bed with no distress at this time. He does have some significant weakness. He is not complaining of shortness of breath or pain at this time. There were no significant events overnight. OBJECTIVE: VITAL SIGNS: Blood pressure 158/81. Heart rate 121. Respiratory rate 22. Temperature 97.3. Oxygen saturation 97%. GENERAL: Mr. Herr is an ill-appearing male patient who is in no current distress at this time. HEENT: Normocephalic, atraumatic. Pupils are equal and reactive. No nasal drainage. Oral mucosa is moist. NECK: Supple. Midline trachea. No jugular venous distention. CHEST: Symmetrical with equal rise and fall of the chest with inspiration and expiration. Lungs sounds are diminished in the bases. CARDIOVASCULAR: Irregular rate and rhythm, which is currently atrial fibrillation with rapid ventricular response per the monitoring analyst. ABDOMEN: Soft. Positive bowel sounds. LOWER EXTREMITIES: Positive edema. He does have the heel wounds which are dressed at this time. NEUROLOGIC: The patient is awake and alert. LABORATORY: White cell count 18.2, hemoglobin 10.5, hematocrit 31.8, platelet count 376. INR has gone up to 4.8 from 3.6 yesterday. However, he is still off of the warfarin. Sodium 135, potassium 3.8, chloride 105, CO2 21, BUN 16, creatinine 0.58, glucose 184, calcium 7.6, magnesium 1.6, albumin 1.8. MICROBIOLOGY: Blood cultures resulted in oxacillin sensitive Staphylococcus aureus. Also, wound culture showed Stenotrophomonas Maltophilia which is sensitive to Levaquin as well. ASSESSMENT: 1. Mild diabetic ketoacidosis- resolved. 2. Bacteremia. 3. Diabetic foot ulcer, left heel. 4. Urinary tract infection. 5. Dehydration. 6. Altered mental status. 7. Atrial fibrillation with rapid ventricular response. 8. Hypertension. PLAN: Given his cultures, I am continuing his antibiotics with Levaquin and Rocephin. Once again, Dr. Hu was consulted already on this patient and agrees with those antibiotics. His INR is a little bit elevated today, however, it is likely due to the fact that he still has some warfarin in his system and he was started on Levaquin. We will monitor this and ensure that it stabilizes. Additionally, the patient is noted to be in atrial fibrillation with rapid ventricular response today. His blood pressure is stable and actually a little bit on the high side. I have ordered IV Lopressor along with p.o. Lopressor. The only medicine I see him on as an outpatient is verapamil and I am not sure that giving this p.o. at this time is going to adequately control his rate. His mentation is clearing, however, he is still very weak, so I am putting an order in for physical therapy as well. I stopped his insulin drip and replacing this with sliding scale. However, given the fact that he is not drinking and eating a whole lot, am going to put him on normal saline at 100 mL per hour. I will recheck his labs tomorrow. Dr. Perez has been consulted regarding his diabetic foot ulcer to assess for the need for debridement at this time. #[id number] [facility]
[2017-09-17] MEDS: levoFLOXacin 750MG IV 750 MG in PREMIX BAG 1 BAG IVPB SCH (16:10)
[2017-09-17] MEDS: METOPROLOL TARTRATE 25 MG TAB PO SCH (16:11)
--- NOTE | 2017-09-17 16:34 | US ---
EXAM DESCRIPTION: Extremity,Lower Venancio Arteries CLINICAL HISTORY: 77 years Male heel wound COMPARISON: None. TECHNIQUE: Duplex imaging performed to evaluate bilateral lower extremity arterial structures. FINDINGS: Right: Triphasic waveform in the common femoral artery with a velocity of 65 cm/s. Triphasic flow extends through the superficial femoral. Biphasic flow in the popliteal. Mildly elevated velocity in the peroneal is 95 cm/s with monophasic flow. Monophasic waveform in the posterior tibial. Biphasic flow seen in the dorsalis pedis. Velocity in the posterior tibial is also elevated at 114 cm/s. There is subcutaneous edema over the right lower extremity beginning in the distal thigh. Left: Common femoral has triphasic flow with a velocity of 81 cm/s. Triphasic flow is seen in the superficial femoral. Biphasic flow in the popliteal with diminished velocity 29 cm/s which may reflect a more proximal stenosis. Monophasic flow in the peroneal posterior tibial and dorsalis pedis. There is a small amount of edema in the left lower extremity. IMPRESSION: Findings suggesting mild peripheral vascular disease with abnormal waveforms involving the popliteal and the calf vessels bilaterally Elevated velocities in the peroneal and posterior tibials worse on the right suggesting areas of more proximal stenosis Findings suggest areas of stenosis in the distal left superficial femoral and popliteal Electronically signed by: Seda Mccarty 09/17/2017 4:33 PM [facility] [employer]IDE
[2017-09-17] MEDS: ACETAMINOPHEN 325 MG TAB PO PRN (20:47)
--- NOTE | 2017-09-17 21:08 | CONS ---
DATE OF CONSULTATION: 09/17/17 HISTORY OF PRESENT ILLNESS: The patient is a 77 year-old male that was admitted with diabetic ketoacidosis. He is noted to be febrile. He was having chills and noted to have an ulcer on his left foot, and what appeared to be a urinary tract infection. He was cultured and admitted, and begun on antibiotics. His cultures have grown a Staphylococcus sensitive to Penicillin and he is being treated with Rocephin, and a Streptococcus which was sensitive to the Levaquin, and these antibiotics have been used in phone consultation with Dr. Hu, an Infectious Disease specialist from [place]. Upon admission, he was confused but he is awake now and complains also of right hand pain. PAST MEDICAL HISTORY: 1. Diabetes type 2 on insulin. 2. Atrial fibrillation. 3. Coronary artery disease. 4. Hypertension. 5. Hyperlipidemia. 6. Gastroesophageal reflux disease. 7. Diabetic neuropathy. 8. Gout. 9. Chronic back pain. PAST SURGICAL HISTORY: 1. Back surgery. ALLERGIES: PENICILLIN. SOCIAL HISTORY: The patient lives in [place]. He sees Dr. Razo. He has no history of tobacco, alcohol or drug use currently. REVIEW OF SYSTEMS: Currently he denies chest pain, shortness of breath, abdominal pain. He does not have complaints about his Dunne catheter, but he does complain of pain in his right hand. PHYSICAL EXAMINATION: VITAL SIGNS: He is currently afebrile and normotensive. GENERAL: He is in no acute distress. HEENT: Reveals the sclera to be nonicteric. Mucous membranes are moist. NECK: Without adenopathy. ABDOMEN: Soft and benign. EXTREMITIES: Right upper extremity, the hand is edematous with mild erythema. There are what appear to be puncture sites and he might have mild phlebitis, but must be followed carefully for suppurative phlebitis. His left lower extremity is without edema. It is warm. There is a dressed eschar on his left heel, the site of the wound cultures, but it will be left dressed this evening. His right leg has 3+ edema with a wound on his right heel, and this will be examined tomorrow. LABORATORY: White blood cell count is 18,000. The cultures are as noted. IMPRESSION: 1. Diabetic ketoacidosis on admission with a pressure ulcer that is infected on the left. 2. Another area of pressure breakdown on his right heel. 3. Possible suppurative phlebitis on his right hand. PLAN: The plan will be for elevation of the right hand and the right leg. I will plan dressing changes tomorrow and debridement of at least the left heel. The patient understands this and will continue with it as planned. #[id number] [facility]
[2017-09-17] MEDS: NYSTATIN POWDER 15GM BTTL TOP SCH (21:15)
[2017-09-17] MEDS: GABAPENTIN 300 MG CAP PO SCH (21:24)
[2017-09-18] MEDS: PANTOPRAZOLE SODIUM TAB 40 MG PO SCH (06:10)
[2017-09-18] MEDS: INSULIN LISPRO 100 UNITS/ML PEN SUBCU SCH ×4 (06:59→21:33)
[2017-09-18] MEDS: METOPROLOL TARTRATE 25 MG TAB PO SCH ×2 (07:25→16:52)
[2017-09-18] MEDS: POTASSIUM CHLORIDE 20 MEQ TAB PO SCH (07:25)
[2017-09-18] MEDS ORDERED: PHYTONADIONE INJ 10 MG/ML AMP IM ONE (08:00)
[2017-09-18] MEDS: NYSTATIN POWDER 15GM BTTL TOP SCH ×4 (08:44→21:31)
[2017-09-18] MEDS: ALLOPURINOL 300 MG TAB PO SCH (08:45)
[2017-09-18] MEDS: CHLORHEXIDINE GLUC 4% 15ML 45 ML, WATER FOR IRRIGATION 1,000 ML TOP SCH ×2 (08:46)
[2017-09-18] MEDS: SODIUM CHLORIDE 0.9% 1000ML 1,000 ML IVS PRN ×2 (08:51→21:41)
[2017-09-18] MEDS ORDERED: SODIUM CHL 0.9% 100ML MINI-BAG 0 ML IVPB ONE (10:32)
[2017-09-18] MEDS ORDERED: MEROPENEM 1 GM VIAL IVPB ONE ×2 (11:43→18:58)
[2017-09-18] MEDS ORDERED: SODIUM CHL 0.9% 50ML MIN-BAG+ 50 ML IVPB ONE ×2 (11:43→18:58)
[2017-09-18] MEDS: INSULIN DETEMIR 100 UNITS/ML PEN SUBCU SCH ×2 (11:47→21:32)
[2017-09-18] MEDS: MEROPENEM 1 GM in SODIUM CHL 0.9% 50ML MIN-BAG+ 50 ML IVPB SCH ×2 (11:53→19:11)
--- NOTE | 2017-09-18 14:21 | PN ---
SUPERVISING PHYSICIAN: Andrew Espinoza MD DATE: 09/18/17 SUBJECTIVE: The patient is lying in bed without acute distress. He seems a little bit more alert and perkier than he did yesterday. He was seen by Dr. Perez regarding his wounds and further management of those wounds will be done by Dr. Perez and his wound care orders. There is a likelihood he is going to have the left heel debrided. He does not have any complaints of any nausea or vomiting, no shortness of breath. No pain at this time, however, he did have a spike of temperature to 100.2 at around 8 o'clock last night. I reviewed his labs as well. OBJECTIVE: VITAL SIGNS: Blood pressure 133/78. Heart rate 101. Respiratory rate 20. Temperature 98.9. Oxygen saturation 94%. GENERAL: Mr. Herr is a 77-year-old male patient who still appears acutely and chronically ill at this time. HEENT: Normocephalic, atraumatic. Pupils are equal and reactive. No nasal drainage. Moist buccal mucosa. NECK: Supple. Midline trachea. No jugular venous distention. CHEST: Symmetrical with equal rise and fall of the chest with inspiration and expiration. Lungs sounds are still diminished in the bases. CARDIOVASCULAR: Irregular rate and rhythm, which is atrial fibrillation per the monitor technician, but the rate is improved from yesterday. ABDOMEN: Soft. Positive bowel sounds. LOWER EXTREMITIES: Positive edema. Heel wounds are dressed at this time. NEUROLOGIC: The patient is alert and awake. LABORATORY: Labs are reviewed today and show a white count of 18.5, which is up from yesterday of 18.2. Hemoglobin 10.0, hematocrit 31.4, platelet count 388. INR is now 5.27. Chemistry shows sodium 133, potassium 4.6, chloride 104 , CO2 20, BUN 20, creatinine 0.71, glucose 297, calcium 7.4, magnesium 1.6. ASSESSMENT: 1. Methicillin sensitive Staphylococcus aureus bacteremia along with methicillin sensitive Staphylococcus aureus Stenotrophomonas wound infection. 2. Uncontrolled diabetes. 3. Diabetic foot ulcer. 4. Urinary tract infection. 5. Dehydration. 6. Altered mental status, improved. 7. Atrial fibrillation with rapid ventricular response, now improved. 8. Hypertension. 9. Coumadin coagulopathy. PLAN: His white count did not really improve. I discussed this with Dr. Hu who initially wanted to place the patient on Zosyn and discontinue the Rocephin. However, the patient is allergic to penicillin. Therefore, we are escalating to Merrem at this time. As stated before, Dr. Perez has seen the patient and we are going to defer to him for wound management at this time. Given his atrial fibrillation with rapid ventricular response has improved with the addition of beta blockers, we will continue these at this time. His blood pressure is acceptable. Additionally, I have noted that once he was taken off the insulin drip, his blood sugar has become elevated once again. Therefore, I am adding long-acting insulin to his regimen. We will need to monitor his glucoses closely and adjust the insulin accordingly. Physical therapy has been consulted yesterday and they are working with him. His INR was even higher today. Therefore, I have given 2.5 mg of vitamin K as well. I still feel like the Levaquin and warfarin interaction is playing a role here. Due to the fact we have not resumed his warfarin, this should stabilize. Dr. Espinoza is the collaborating physician. #[id number] [facility]
[2017-09-18] MEDS: levoFLOXacin 750MG IV 750 MG in PREMIX BAG 1 BAG IVPB SCH (15:43)
[2017-09-18] MEDS: GABAPENTIN 300 MG CAP PO SCH (21:31)
[2017-09-18] MEDS: SODIUM CHLORIDE 0.9% (FLUSH) 10 ML SYG IV PRN (21:32)
[2017-09-19] MEDS ORDERED: SODIUM CHL 0.9% 50ML MIN-BAG+ 50 ML IVPB ONE ×3 (01:27→19:51)
[2017-09-19] MEDS ORDERED: MEROPENEM 1 GM VIAL IVPB ONE ×3 (01:27→19:51)
[2017-09-19] MEDS: MEROPENEM 1 GM in SODIUM CHL 0.9% 50ML MIN-BAG+ 50 ML IVPB SCH ×3 (03:13→19:54)
[2017-09-19] MEDS: PANTOPRAZOLE SODIUM TAB 40 MG PO SCH (05:53)
[2017-09-19] MEDS: INSULIN LISPRO 100 UNITS/ML PEN SUBCU SCH ×4 (07:23→21:11)
[2017-09-19] MEDS: METOPROLOL TARTRATE 25 MG TAB PO SCH (07:52)
[2017-09-19] MEDS: POTASSIUM CHLORIDE 20 MEQ TAB PO SCH (07:52)
[2017-09-19] MEDS: SODIUM CHLORIDE 0.9% 1000ML 1,000 ML IVS PRN ×2 (07:54→21:21)
[2017-09-19] MEDS: CHLORHEXIDINE GLUC 4% 15ML 45 ML, WATER FOR IRRIGATION 1,000 ML TOP SCH ×2 (09:30)
[2017-09-19] MEDS: BIFIDOBACTERIUM INFANTIS 4 MG CAP PO SCH ×2 (10:16→21:10)
[2017-09-19] MEDS: ALLOPURINOL 300 MG TAB PO SCH (10:16)
[2017-09-19] MEDS: INSULIN DETEMIR 100 UNITS/ML PEN SUBCU SCH ×2 (10:16→21:11)
[2017-09-19] MEDS: NYSTATIN POWDER 15GM BTTL TOP SCH ×4 (10:16→21:10)
--- NOTE | 2017-09-19 12:10 | RAD ---
EXAM DESCRIPTION: Chest,1 View CLINICAL HISTORY: worsening leukocytosis COMPARISON: Chest radiograph dated September 13, 2017 CT chests dated September 15, 2017 IMPRESSION: Single upright portable frontal view of the chest. Lung volumes are shallow with associated bronchovascular crowding. There is mild linear atelectasis of both lung bases. Otherwise, lungs are clear without definite focal consolidative infiltrates. Cardiac silhouette and pulmonary vascularity are stable in appearance. Costophrenic angles are sharp. No pneumothorax. Electronically signed by: Ta Ayers MD 09/19/2017 12:09 PM REFUSE AND RECYCLING WORKER
--- NOTE | 2017-09-19 14:14 | PN ---
SUPERVISING PHYSICIAN: Andrew Espinoza MD DATE: 09/19/17 SUBJECTIVE: The patient feels overall better. He is still pretty weak, but this seems to actually be a little bit better as well. Physical therapy is working with him still and he has also been evaluated by Dr. Perez. In fact, Dr. Perez was in the room with me during evaluation as well. He is showing some improvement in the edema of the right leg as well as the erythema. The right hand is improved as well. He is having some increase in his WBC, however. OBJECTIVE: VITAL SIGNS: Blood pressure 138/88. Heart rate 128. Respiratory rate 22. Temperature 96.5. Oxygen saturation 94%. GENERAL: Mr. Herr is a 77-year-old male patient who is still acutely ill in appearance, but in no severe distress. HEENT: Normocephalic, atraumatic. Pupils are equal and reactive. No nasal drainage. Throat with moist mucosa. NECK: Supple. Midline trachea. No jugular venous distention. CHEST: Symmetrical with equal rise and fall of the chest with inspiration and expiration. Lungs sounds are diminished in the bases, but otherwise clear to auscultation bilaterally. CARDIOVASCULAR: Regular rate and rhythm. Normal S1, S2. ABDOMEN: Soft. Positive bowel sounds. GENITOURINARY: Deferred. EXTREMITIES: Lower extremities with dressings to the heels. The right lower extremity with the erythema which is showing some improvement. The right hand is showing some improvement in erythema and edema as well. NEUROLOGIC: The patient is alert. LABORATORY: White count 19.8, hemoglobin 10.3, hematocrit 31.7, platelet count 429. ESR 115. INR 4.28. Sodium 134, potassium .35, chloride 105, CO2 21, BUN 21, creatinine 0.65, glucose 121, calcium 7.4, CRP 26.7. ASSESSMENT: 1. Methicillin sensitive Staphylococcus aureus bacteremia along with methicillin sensitive Staphylococcus aureus Stenotrophomonas wound infection. 2. Uncontrolled diabetes. 3. Diabetic foot ulcer. 4. Urinary tract infection. 5. Dehydration with acute kidney injury. 6. Atrial fibrillation with rapid ventricular response. 7. Hypertension. 8. Coumadin coagulopathy. PLAN: 1. His white cell count has gone up again. I have discussed this with Dr. Hu. She wants to continue the Merrem at this time. She thinks he may need debridement of his wounds, however, clinically they are showing some improvement. Dr. Perez is also managing these wounds at this time. 2. His atrial fibrillation did improve with the beta ck, however, he is still tachycardic, so I am going to increase his dose of Lopressor. 3. His blood sugars are improved as well, however, he can probably use a larger dose in the morning of the Levemir. 4. We will continue physical therapy. 5. He showed some improvement in his INR as well and he is not showing any sign of bleeding, so I will repeat that level tomorrow to ensure it is still going down. Dr. Espinoza is the collaborating physician. #[id number] [facility]
[2017-09-19] MEDS: levoFLOXacin 750MG IV 750 MG in PREMIX BAG 1 BAG IVPB SCH (15:24)
[2017-09-19] MEDS: METOPROLOL TARTRATE 50 MG TAB PO SCH (19:05)
[2017-09-19] MEDS: GABAPENTIN 300 MG CAP PO SCH (21:10)
[2017-09-19] MEDS: IV SET AND CAP CHANGE INJ INJ SCH (23:00)
[2017-09-20] MEDS ORDERED: MEROPENEM 1 GM VIAL IVPB ONE ×3 (03:31→19:24)
[2017-09-20] MEDS ORDERED: SODIUM CHL 0.9% 50ML MIN-BAG+ 50 ML IVPB ONE ×3 (03:31→19:23)
[2017-09-20] MEDS: MEROPENEM 1 GM in SODIUM CHL 0.9% 50ML MIN-BAG+ 50 ML IVPB SCH ×3 (03:38→19:37)
[2017-09-20] MEDS: ACETAMINOPHEN 325 MG TAB PO PRN (03:39)
[2017-09-20] MEDS: PANTOPRAZOLE SODIUM TAB 40 MG PO SCH (06:04)
[2017-09-20] MEDS: POTASSIUM CHLORIDE 20 MEQ TAB PO SCH (08:00)
[2017-09-20] MEDS: INSULIN LISPRO 100 UNITS/ML PEN SUBCU SCH ×4 (08:35→21:08)
[2017-09-20] MEDS: INSULIN DETEMIR 100 UNITS/ML PEN SUBCU SCH ×2 (09:09→21:07)
[2017-09-20] MEDS: NYSTATIN POWDER 15GM BTTL TOP SCH ×4 (09:38→20:45)
[2017-09-20] MEDS: BIFIDOBACTERIUM INFANTIS 4 MG CAP PO SCH ×2 (09:38→20:44)
[2017-09-20] MEDS: ALLOPURINOL 300 MG TAB PO SCH (09:38)
[2017-09-20] MEDS: METOPROLOL TARTRATE 50 MG TAB PO SCH ×2 (09:38→17:11)
[2017-09-20] MEDS: CHLORHEXIDINE GLUC 4% 15ML 45 ML, WATER FOR IRRIGATION 1,000 ML TOP SCH ×2 (09:39)
[2017-09-20] MEDS: MULTIPLE VITAMIN 1 EA TAB PO SCH (15:36)
[2017-09-20] MEDS: ASCORBIC ACID 500 MG TAB PO SCH (15:36)
[2017-09-20] MEDS: levoFLOXacin 750MG IV 750 MG in PREMIX BAG 1 BAG IVPB SCH (15:37)
[2017-09-20] MEDS: ZINC 50 MG CAPSULE PO SCH (15:44)
--- NOTE | 2017-09-20 19:30 | PN ---
DATE: 09/20/17 SUPERVISING PHYSICIAN: Andrew Espinoza M.D. SUBJECTIVE: The patient continues to feel better daily. He is weak but he is able to move his upper extremities a lot better than he has in the last [address] 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 He continues to run a low-grade fever with T max being 100.4. OBJECTIVE: VITAL SIGNS: T max 100.4, pulse 116, blood pressure 110/70, respirations 18, satting 94% on nasal cannula at 4 liters at rest. I's and O's show a positive balance of 2180 with 3455 in, 1275 out. He has had 1 bowel movement. Weight is 74.8 kg. CHEST: Lungs are clear to auscultation, diminished slightly towards the bases. HEART: Regular rate and rhythm without appreciable murmurs, gallops, or rubs. ABDOMEN: Soft, non-tender. Positive bowel sounds. EXTREMITIES: Dressings remain in place on bilateral heels. The right lower extremity has some erythema and ecchymotic areas, and 1+ edema. Right hand continues to show some moderate erythema and some edema. NEUROLOGIC : He is alert and oriented times three. LABORATORY: White count is down to 15,600 with hemoglobin 8.4, hematocrit 25.8 , platelet count 404,000. Differential shows a continued left shift. Coagulation studies today show an INR of 3.39. Chemistries show sodium 133, potassium 3.5, carbon dioxide 20, BUN 21, creatinine 0.7, glucose 143. Glucoses have been 94 to 285. Calcium 7.2, corrected for low albumin of 1.5 to 8.4. Liver functions show continued elevated AST at 50. MICROBIOLOGY: New sets of blood cultures drawn on the show no growth at 24 hours. Wound culture recollected after debridement on the shows no growth at 24 hours of the left heel and of the right heel. Again, his final urine culture showed Staphylococcus aureus non-MRSA as well as initial wound culture and 3 sets of blood cultures as well as wound culture showed a Stenotrophomonas Maltophilia. RADIOLOGY: There are no additional radiographic studies today. ASSESSMENT: 1. Methicillin sensitive Staphylococcus aureus bacteremia along with wound culture with same species, Staphylococcus aureus non-MRSA as well as Stenotrophomonas species showing a good response with Meropenem and continued coverage with Levaquin. 2. Diabetes mellitus type 2 poorly controlled. 3. Leukocytosis secondary to #1 showing improvement with initiation of parenteral antibiotics. 4. Electrolyte imbalance with hypokalemia and hyponatremia. 5. Normochromic normocytic anemia likely of chronic illness. 6. Urinary tract infection with Methicillin sensitive Staphylococcus aureus. 7. Dehydration with acute renal insufficiency showing improvement with fluids. 8. Atrial fibrillation with rapid ventricular response requiring ongoing management. 9. History of hypertension but currently hypotensive. 10. Coumadin coagulopathy likely secondary to Levaquin administration. PLAN: Will continue with Meropenem and Levaquin in regards to his parenteral antibiotics as he is showing some better response with his white count improving slightly. Dr. Perez continues to manage the wounds. Will continue to monitor his heart rate and his atrial fibrillation and add a continued beta ck as needed. He continues with sliding scale in management of his blood sugars along with Levemir which will be modified as needed to further tighten blood sugar controls. Will monitor his H&H and if need be transfuse blood as appropriate. He has had a consultation scheduled for an LTAC with [facility] in [place] which will be completed tomorrow. Will await that input. Will continue with physical therapy. Will continue to monitor his INR and continue to hold Coumadin as he continues to be supratherapeutic, but has not shown any signs of bleeding. His nutritional status based off the health and safety instructor recommendations, I have started him on zinc, calcium and multivitamins as well as encouraged high protein snacks at least 3 times a day with meals. Will plan to repeat labs in the morning and monitor closely. Anticipate hopefully being able to discharge to [facility], for continued monitoring and management of his diabetic ulcers and continue antibiotic therapy, as well as physical therapy. Until then, continue to monitor and treat appropriately. #[id number] [facility]
[2017-09-20] MEDS: SODIUM CHLORIDE 0.9% 1000ML 1,000 ML IVS PRN (20:42)
[2017-09-20] MEDS: GABAPENTIN 300 MG CAP PO SCH (20:45)
[2017-09-21] MEDS ORDERED: MEROPENEM 1 GM VIAL IVPB ONE ×2 (01:32→11:28)
[2017-09-21] MEDS ORDERED: SODIUM CHL 0.9% 50ML MIN-BAG+ 50 ML IVPB ONE ×2 (01:32→11:28)
[2017-09-21] MEDS: MEROPENEM 1 GM in SODIUM CHL 0.9% 50ML MIN-BAG+ 50 ML IVPB SCH ×2 (03:40→11:30)
[2017-09-21] MEDS: ACETAMINOPHEN 325 MG TAB PO PRN (03:45)
[2017-09-21] MEDS: PANTOPRAZOLE SODIUM TAB 40 MG PO SCH (06:37)
[2017-09-21] MEDS: POTASSIUM CHLORIDE 20 MEQ TAB PO SCH (07:57)
[2017-09-21] MEDS: INSULIN LISPRO 100 UNITS/ML PEN SUBCU SCH ×2 (07:58→11:48)
[2017-09-21] MEDS: ASCORBIC ACID 500 MG TAB PO SCH (07:58)
[2017-09-21] MEDS: ALLOPURINOL 300 MG TAB PO SCH (07:58)
[2017-09-21] MEDS: METOPROLOL TARTRATE 50 MG TAB PO SCH ×2 (07:58→16:33)
[2017-09-21] MEDS: MULTIPLE VITAMIN 1 EA TAB PO SCH (07:58)
[2017-09-21] MEDS: BIFIDOBACTERIUM INFANTIS 4 MG CAP PO SCH (07:58)
[2017-09-21] MEDS: ZINC 50 MG CAPSULE PO SCH (07:58)
[2017-09-21] MEDS: NYSTATIN POWDER 15GM BTTL TOP SCH ×2 (08:04→14:00)
[2017-09-21] MEDS: INSULIN DETEMIR 100 UNITS/ML PEN SUBCU SCH (08:35)
[2017-09-21] MEDS: SODIUM CHLORIDE 0.9% 1000ML 1,000 ML IVS PRN ×2 (10:36→11:50)
--- NOTE | 2017-09-21 14:45 | US ---
EXAM DESCRIPTION: Venous,Lower Extremity RT: ULTRASOUND. CLINICAL HISTORY: LE edema Left greater then right COMPARISON: Deep venous duplex ultrasound evaluation left leg on the same visit. TECHNIQUE: Two -dimensional and doppler sonographic evaluation of the deep venous system of the right lower extremity. FINDINGS: Doppler evaluation shows normal color flow and normal phasicity and augmentation of the right common femoral vein, femoral vein, popliteal vein, greater saphenous vein, peroneal, and posterior tibial vein. The right lower extremity deep veins showed normal occlusion with transducer pressure. Two-dimensional survey showed no echogenic thrombus within these veins. IMPRESSION: 1. Duplex ultrasound evaluation of the right lower extremity deep venous system showing no evidence of thrombosis or embolism. Electronically signed by: Jose Joyce MD 09/21/2017 2:44 PM TARGETING ACQUISITION OFFICER
--- NOTE | 2017-09-21 14:46 | US ---
EXAM DESCRIPTION: Venous,Lower Extremity LT: ULTRASOUND. CLINICAL HISTORY: LE edema Left greater then right COMPARISON: Duplex ultrasound evaluation of the deep venous system of the right lower extremity on this visit. TECHNIQUE: Two -dimensional and doppler sonographic evaluation of the deep venous system of the left lower extremity. FINDINGS: Doppler evaluation shows normal color flow and normal phasicity and augmentation of the left common femoral vein, femoral vein, popliteal vein, greater saphenous vein, peroneal, and posterior tibial vein. The left lower extremity deep veins showed normal occlusion with transducer pressure. Two-dimensional survey showed no echogenic thrombus within these veins. IMPRESSION: 1. Duplex ultrasound evaluation of the left lower extremity deep venous system showing no evidence of thrombosis or embolism. Electronically signed by: Jose Joyce MD 09/21/2017 2:45 PM PRODUCTION PATTERN MAKER
[2017-09-21] MEDS: levoFLOXacin 750MG IV 750 MG in PREMIX BAG 1 BAG IVPB SCH (14:59)
[2017-09-21 16:22] VITALS: BP 136/76; TEMP 98.8; O2SAT 96
--- NOTE | 2017-09-25 09:31 | DS ---
SUPERVISING PHYSICIAN: Andrew Espinoza MD DISCHARGE DIAGNOSIS: 1. Methicillin sensitive Staphylococcus aureus bacteremia along with wound culture with same species, Staphylococcus aureus non-MRSA as well as Stenotrophomonas species showing a good response with meropenem and continued coverage with Levaquin. 2. Diabetes mellitus, type 2. 3. Leukocytosis secondary to #1, improved with initiation of parenteral antibiotics. 4. Electrolyte imbalance initially with hypokalemia and hyponatremia, improved with fluids. 5. Normochromic/normocytic anemia, likely secondary to chronic illness. 6. Urinary tract infection with Methicillin sensitive Staphylococcus aureus. 7. Dehydration with acute renal insufficiency, improved with IV fluids. 8. Atrial fibrillation with rapid ventricular response, requiring initiation of rate control medications. 9. History of hypertension, controlled. 10. Coumadin coagulopathy, secondary to Levaquin administration, stable prior to discharge. 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 REASON FOR HOSPITALIZATION: Mr. Herr is a 77-year-old male patient who resides at home. He presented to the Emergency Room on the day of admission because he was called by his primary care physician in [place], Dr. Razo, to come to the Emergency Room for evaluation due to some abnormalities in his lab work. In the Emergency Room, he was found to have a very low CO2 and an elevated glucose. Initially, his symptoms started approximately one week previous to admission with extreme weakness and flu like symptoms. He was febrile, but did not take his temperature and had extremely bad chills. He had some nausea and vomiting and it got to the point that his vomiting was so bad that he quit taking all of his medicines including his insulin. He also was noted to have a significant heel ulcer on his left foot. In addition to the flu like symptoms, he also was incontinent and was falling. There was no acute trauma, but he was very deconditioned and weak. In the Emergency Room, his lab showed a white count 16,300 with hemoglobin 11.3 and hematocrit 34.8. Blood sugar was 485. He was significantly dehydrated with serum osmolality of 305. He was given fluid boluses in the Emergency Room and started on an insulin drip. He also was positive for serum ketones. Urinalysis showed he had a significant urinary tract infection with 3+ bacteria. He was also tachycardic with O2 saturation 90%. Flu swab by PCR was negative for influenza A and B. He was admitted to the hospital for ongoing treatment and further evaluation. He was admitted in stable condition. LABORATORY: Initial white count on admission showed leukocytosis at 15,800. It did go to a maximum of 19,800 and prior to discharge was continuing to show elevation, but was at 14,600. Hemoglobin and hematocrit were stable and at discharge were 9.1 and 28.1 with platelet count 577,000. Differential did show a left shift. He had an elevated ESR of 115. Coagulation studies multiple days , initially INR was 1.99. After initiation of antibiotics with Levaquin, it did elevate up to a maximum of 5.270. And therefore discharge, it was down to 3.39. Blood gas analysis was still pending. Chemistries initially in the Emergency Department showed sodium 133, potassium 3.6, carbon dioxide 20, anion gap 16, BUN 65, creatinine 1.3. Initial glucose was 485. Serum osmolality 305. Calcium 9. Liver functions within normal limits. Urinalysis showed greater than 1000 glucose with 40 ketones, small amount of blood, positive nitrites, 2.0 urobilinogen and microscopic showed 5 to 10 RBCs, 3 to 5 WBCs with 3+ bacteria. He had ketones on admission that initially showed to be small. They finally did normalize and became negative on 09/14/17. He had one vancomycin trough that was 12.6. On arterial blood gases, pH was 7.36, PCO2 36 , PO2 63, O2 93.8%. Bicarb 20.1 with base excess of -4.2. MICROBIOLOGY: Urine culture culture final result showed Staphylococcus aureus that was non-methicillin resistant, sensitivity to all but benzylpenicillin. He had three sets of blood cultures that were negative from admission, all showing the same species of Staphylococcus aureus that was sensitive to everything but benzylpenicillin. He had additional set of blood cultures times two that were negative drawn on 09/1017 and were negative after 5 days. Wound culture after debridement of the wound showed no growth after 72 hours of the heel on the right as well as the left heel showed skin contamination. RADIOLOGY: He had multiple radiographic studies. Initially, he had chest x- ray in the Emergency Department that per radiologic interpretation of a single view chest showed prominence of left hilum which could be lymphadenopathy or prominent pulmonary vascular mass. There was no focal airspace disease. This was followed up with multiple chest x-rays . Initially, he had a chest CT and per radiologic interpretation of the CT with contrast showed previously seen abnormalities in the left hilar region most likely represented superimposition of vessels. There were no large lobar consolidation. There was some cardiomegaly noted. He had one additional chest x-ray prior to discharge on 06/27 which per radiologic interpretation of a single view chest showed lung volumes are shallow with associated bronchovascular crowding. Otherwise, lungs are clear without definite focal consolidative infiltrates. He also had x-rays of his left foot for the heel decubitus ulcer that showed degenerative changes observed, but no plain film evidence of osteomyelitis detected. He had a CT of the head without contrast and per radiologic interpretation showed no gross intracranial hemorrhage or midline shift. He had an x-ray of his right hand and right wrist that showed no acute osseous abnormalities. There was evidence of advanced SLAC wrist with severe triscaphe and mild thumb CMC degenerative joint disease. He also had an ultrasound of his lower extremities for arterial studies bilaterally which showed findings suggestive of mild peripheral vascular disease with abnormal waveforms involving the popliteal and calf veins bilaterally, elevated velocities of the peroneal and posterior tibials, worse on the right suggesting more proximal stenosis with findings suggestive of stenosis of the distal left superficial femoral and popliteal arteries. He then had a Doppler study to rule out DVT of bilateral extremities which per radiologic interpretation showed left lower extremity deep venous system showed no evidence of thrombus or embolism. His right lower extremity deep venous system showed no evidence of thrombus or embolism per radiologic interpretation. EKG on admission showed atrial fibrillation with a rapid ventricular response. HOSPITAL COURSE: Mr. Herr was admitted as noted on 09/13/17 for concerns for urinary tract infection, diabetic ulcer and diabetic ketoacidosis. He was started on DKA protocol on admission as well as blood cultures were completed. He showed good resolved to fluids and resolved the diabetic ketoacidosis, however, he had multiple blood cultures that became positive and required initiation of antibiotics. After final reports were back showing non-MRSA, he was continued on antibiotic therapy with Rocephin and prior to that was on vancomycin as well as added to that was Levaquin, Flagyl and meropenem. After his blood cultures became positive and culture results were back, his antibiotic therapy was more targeted towards the findings on the blood cultures. Therefore, he was kept initially under close observation with meropenem. He did have a consultation via telephone for infectious disease coverage with Dr. Hu who recommended we continue meropenem as well as Levaquin. He was started on a beta ck for his atrial fibrillation with rapid ventricular response showing good management. He was stable, but had significant deconditioning requiring physical therapy and at discharge to continue with further management at [facility] in long-term acute care facility. On the morning of discharge/transfer, he was stable with his vital signs showing heart rate 103, afebrile at 98.8, blood pressure 136/76, saturation 96% on 3 liters nasal cannula with respirations 24. Through his hospitalization, his T-max was 100.8. Again, he had two sets of blood cultures after the initial three sets were positive and initiation of therapy and they were showing to be no growth. He also had a consultation with Dr. Perez and debridement of the ulcer on the foot was completed. Cultures showed no significant growth. Dr. Perez managed his ulcers on the left and right heels. He had notable severe pain in his right wrist, but no x-ray evidence of any fractures. He was started on some Toradol which did resolve the inflammation and prior to discharge, he was showing significant improvement. Again, he was showing clinical improvement, but continued to be significantly deconditioned and was to be transferred to a long-term care facility at [facility]. PLAN: Mr. Herr was discharged to concomitant with care at long-term acute care facility at [facility] in [place]. He was transferred via ambulance. Electronic medical record medication was sent with him to continue with Levaquin and meropenem. Dr. Hu was notified of the patient's transfer of care. His diet was to be a diabetic diet as tolerated and activity as directed by physical therapy. Once stable and discharged, he will need to followup with his primary care provider, Dr. Razo, in the [facility]. Discharge condition was good and stable. #[id number] [facility]
== END 2017-09-21 16:45 | DRG 622 ==
LOC: ER 14:45 → MS 22:55
PROVIDERS: ADMIT Nurse Practitioner Acute Care; ATTEND Nurse Practitioner Family
PROC: BB24YZZ Computerized Tomography (CT Scan) of Bilateral Lungs using Other Contrast (ICD-10-PCS; principal; 2017-09-15)
PROC: 0JBR0ZZ Excision of Left Foot Subcutaneous Tissue and Fascia, Open Approach (ICD-10-PCS; 2017-09-18)
DX: E11.10 Type 2 diabetes mellitus with ketoacidosis without coma (principal); G93.41 Metabolic encephalopathy; E87.1 Hypo-osmolality and hyponatremia; L02.612 Cutaneous abscess of left foot; N17.9 Acute kidney failure, unspecified; N30.00 Acute cystitis without hematuria; R78.81 Bacteremia; I48.91 Unspecified atrial fibrillation; I25.10 Atherosclerotic heart disease of native coronary artery without angina pectoris; I10 Essential (primary) hypertension; E78.5 Hyperlipidemia, unspecified; K21.9 Gastro-esophageal reflux disease without esophagitis; E11.40 Type 2 diabetes mellitus with diabetic neuropathy, unspecified; M10.9 Gout, unspecified; G89.29 Other chronic pain; M54.9 Dorsalgia, unspecified; L89.619 Pressure ulcer of right heel, unspecified stage; I80.8 Phlebitis and thrombophlebitis of other sites; E87.6 Hypokalemia; D63.8 Anemia in other chronic diseases classified elsewhere; E86.0 Dehydration; R79.1 Abnormal coagulation profile; T45.515A Adverse effect of anticoagulants, initial encounter; R33.9 Retention of urine, unspecified; J45.909 Unspecified asthma, uncomplicated; R29.6 Repeated falls; M19.031 Primary osteoarthritis, right wrist; E11.51 Type 2 diabetes mellitus with diabetic peripheral angiopathy without gangrene; B95.61 Methicillin susceptible Staphylococcus aureus infection as the cause of diseases classified elsewhere; E11.621 Type 2 diabetes mellitus with foot ulcer; L89.622 Pressure ulcer of left heel, stage 2; T38.3X6A Underdosing of insulin and oral hypoglycemic [antidiabetic] drugs, initial encounter; Z88.0 Allergy status to penicillin; Z91.128 Patient's intentional underdosing of medication regimen for other reason; Z79.4 Long term (current) use of insulin; Y92.009 Unspecified place in unspecified non-institutional (private) residence as the place of occurrence of the external cause; Z79.84 Long term (current) use of oral hypoglycemic drugs; Z79.01 Long term (current) use of anticoagulants

== ENCOUNTER → 2017-09-13 | Outpatient (CLI) | payer MEDICARE ==
--- NOTE | 2017-09-13 16:50 | RAD ---
EXAM DESCRIPTION: Chest,2 Views CLINICAL HISTORY: 77 years Male, COUGH COMPARISON: 20 February 2009 TECHNIQUE: PA/lateral FINDINGS: A poor inspiratory effect is observed. Basilar interstitial fibrosis is observed. No acute parenchymal infiltrate is seen. No pleural fluid is identified. The heart is within range of normal. IMPRESSION: I see no acute cardiopulmonary pathology or significant interval change. Electronically signed by: Ta Lora MD 09/13/2017 4:49 PM ACCOUNTS PAYABLE MANAGER
--- NOTE | 2017-09-13 16:52 | RAD ---
EXAM DESCRIPTION: Foot,Left 3 Views CLINICAL HISTORY: FOOT PAIN COMPARISON: None. TECHNIQUE: 3 views left FINDINGS: Digital artery calcification is observed in the foot. Mild osteopenia is noted. Mild distal interphalangeal joint arthritis is seen. Degenerative changes are observed in the metatarsal phalangeal joint of the first digit. A large plantar calcaneal spurs observed. A small Achilles enthesophyte is noted. IMPRESSION: Degenerative changes are observed throughout the foot. There is marked arterial calcification throughout the foot. Electronically signed by: Ta Lora MD 09/13/2017 4:51 PM [facility]
== END | disposition home or self-care (01) ==
LOC: RAD 13:59
PROVIDERS: ATTEND Internal Medicine
DX: R05 Cough (principal); M79.672 Pain in left foot